=== PATIENT | male | born 1980 | race Caucasian/White ===

== ENCOUNTER 2021-03-07 15:37 | Inpatient (IN) | payer SELFPAY ==
[~2021-03-07] VITALS: Ht 180.3 cm; Wt 77.1 kg
[2021-03-07] MEDS ORDERED: ONDANSETRON ODT 4 MG TAB PO ONE ×2 (16:00)
[2021-03-07 16:17] LABS: Basophils # (auto) 0 10 ^3/uL (0-0.2); Basophils % (auto) 0.6 % (0.0-2.0); Eosinophils # (auto) 0.2 10 ^3/uL (0-0.8); Eosinophils % (auto) 2.6 % (0.0-7.0); Hematocrit 37.6 % (41.0-53.0); Hemoglobin 12.8 g/dL (13.5-17.5); Lymphocytes # (auto) 1.2 10 ^3/uL (0.4-5.4); Lymphocytes % (auto) 20.1 % (10.0-50.0); Mean Corpuscular Volume 91.3 fL (80.0-100.0); Monocytes # (auto) 0.5 10 ^3/uL (0-1.3); Monocytes % (auto) 8.9 % (0.0-12.0); Neutrophils # (auto) 4.1 10 ^3/uL (1.6-8.6); Neutrophils % (auto) 67.8 % (37.0-80.0); Red Blood Cells 4.12 10^6/uL (4.5-5.90); Red Cell Distribution Width 12.6 % (11.8-14.3)
[2021-03-07 16:27] LABS: Partial Thromboplastin Time 26.2 sec (23.6-33.0)
[2021-03-07 16:29] LABS: Albumin 3.8 g/dL (3.4-5.0); Anion Gap 4 (5-15); Blood Urea Nitrogen 15 mg/dL (7-18); Calcium 8.7 mg/dL (8.5-10.1); Carbon Dioxide 29 mmol/L (21-32); Chloride 104 mmol/L (98-107); Glucose 93 mg/dL (74-106); Magnesium 2.2 mg/dL (1.6-2.6); Potassium 4.3 mmol/L (3.5-5.1); Sodium 137 mmol/L (136-145)
[2021-03-07 16:37] LABS: Alanine Aminotransferase 33 U/L (16-61); Alkaline Phosphatase 48 U/L (45-117); Aspartate Aminotransferase 18 U/L (15-37); BUN/Creatinine Ratio 15.6; Bilirubin, Total 0.3 mg/dL (0.2-1.0); GFR African American 111 mL/min; GFR Non-African American 92 mL/min
[2021-03-07] MEDS ORDERED: ACETAMINOPHEN 325 MG TAB PO ONE (16:45)
[2021-03-07] MEDS ORDERED: ASPirin-EC 81 mg tab PO ONE (18:15)
[2021-03-07] MEDS ORDERED: ONDANSETRON HCL 4 MG/2 ML VIAL IV PRN (21:15)
[2021-03-07] MEDS ORDERED: TEMAZEPAM 15 MG CAP PO PRN (21:15)
[2021-03-07] MEDS ORDERED: MORPHINE SULFATE INJECTION 2 MG/ML SYRG IV PRN (21:15)
[2021-03-07] MEDS ORDERED: NITROGLYCERIN 0.4 MG SL TAB SL PRN (21:15)
[2021-03-07] MEDS ORDERED: ATORVASTATIN 20 MG TAB PO SCH (22:00)
[2021-03-07 22:16] LABS: Cholesterol 190 mg/dL (< 200); Triglycerides 128 mg/dL (< 150)
[2021-03-07 22:19] LABS: HDL Cholesterol 59 mg/dL (40-59); LDL Cholesterol 114 mg/dL (< 100)
[2021-03-07] MEDS ORDERED: SUMAtriptan SUCCINATE 25 MG TAB PO PRN (23:15)
[2021-03-08] MEDS: ACETAMINOPHEN 325 MG TAB PO PRN ×2 (02:01→09:37)
[2021-03-08 07:03] LABS: Basophils # (auto) 0.1 10 ^3/uL (0-0.2); Basophils % (auto) 0.9 % (0.0-2.0); Eosinophils # (auto) 0.3 10 ^3/uL (0-0.8); Eosinophils % (auto) 5.3 % (0.0-7.0); Hematocrit 34.8 % (41.0-53.0); Hemoglobin 12.4 g/dL (13.5-17.5); Lymphocytes # (auto) 1.6 10 ^3/uL (0.4-5.4); Lymphocytes % (auto) 27.6 % (10.0-50.0); Mean Corpuscular Hemoglobin 32.4 pg (28.0-32.0); Mean Corpuscular Hgb Conc. 35.6 g/dL (32.0-36.0); Mean Corpuscular Volume 91.2 fL (80.0-100.0); Monocytes # (auto) 0.5 10 ^3/uL (0-1.3); Neutrophils # (auto) 3.4 10 ^3/uL (1.6-8.6); Neutrophils % (auto) 58.2 % (37.0-80.0); Nucleated Red Blood Cells % 0.1 %; Red Blood Cells 3.82 10^6/uL (4.5-5.90); Red Cell Distribution Width 12.7 % (11.8-14.3); White Blood Cell 5.9 10^3/uL (4.4-10.8)
[2021-03-08 07:13] LABS: Potassium 4.2 mmol/L (3.5-5.1)
[2021-03-08 07:20] LABS: Albumin 3.2 g/dL (3.4-5.0); BUN/Creatinine Ratio 13.8; Calcium 8.6 mg/dL (8.5-10.1)
[2021-03-08 07:32] LABS: Bilirubin, Total 0.3 mg/dL (0.2-1.0); Total Protein 6.4 g/dL (6.4-8.2)
[2021-03-08 10:00] VITALS: BP 122/88
[2021-03-08] MEDS ORDERED: ENOXAPARIN SOD 40 MG/0.4 ML SYRINGE SC SCH (10:00)
[2021-03-08] MEDS ORDERED: ASPirin 81 mg TAB PO SCH (10:00)
[2021-03-08] MEDS ORDERED: SUMAtriptan SUCCINATE 6 MG/0.5 ML VL SC ONE (10:30)
[2021-03-08 12:19] VITALS: BP 135/77
[2021-03-08] MEDS ORDERED: LORazepam 2MG/ML-1ML VIAL IV ONE (12:30)
[2021-03-08] MEDS ORDERED: HYDROcodone-ACET 5/325MG TAB PO PRN (12:30)
[2021-03-08] MEDS ORDERED: GADOTERATE MEG 7.5 MMOL/15ml INJ (0.5MMOL/ml) IV ONE (13:31)
[2021-03-08 15:58] VITALS: BP 128/72
[2021-03-08 17:00] VITALS: BP 123/80
[2021-03-08] MEDS ORDERED: SUM25T PO (17:17)
[2021-03-08 17:25] VITALS: BP 128/72
[2021-03-09] MEDS ORDERED: ASPirin 81 mg TAB PO SCH (10:00)
== END 2021-03-08 18:23 | disposition home or self-care (01) | DRG 102 ==
LOC: ER 15:37 → TELE 21:07 → TELE-CENTR 03-08 11:25
PROVIDERS: ADMIT Nurse Practitioner; ATTEND Internal Medicine
DX: G43.909 Migraine, unspecified, not intractable, without status migrainosus (principal); I21.4 Non-ST elevation (NSTEMI) myocardial infarction; I25.110 Atherosclerotic heart disease of native coronary artery with unstable angina pectoris; E78.5 Hyperlipidemia, unspecified; D64.9 Anemia, unspecified; F41.9 Anxiety disorder, unspecified; Z20.822 Contact with and (suspected) exposure to COVID-19; Z82.49 Family history of ischemic heart disease and other diseases of the circulatory system; R07.89 Other chest pain
CPT/HCPCS: 36415; 70450; 70553; 71045; 80053; 80061; 83735; 84443; 84484; 85025; 85379; 85610; 85730; 87426; 93005; 93306; 96372; 96374; G0378; Q0162